=== PATIENT | male | born 1970 | race Caucasian/White ===

== ENCOUNTER 2019-01-20 14:35 | Emergency (ER) | payer SELFPAY ==
[~2019-01-20] VITALS: Ht 188 cm; Wt 107.5 kg
[2019-01-20 14:50] VITALS: BP 133/89; Ht 188 cm; Wt 107.5 kg
== END 2019-01-20 15:55 | disposition home or self-care (01) ==
LOC: ED 14:35
DX: H93.11 Tinnitus, right ear (principal)
CPT/HCPCS: J7512